=== PATIENT | male | born 1970 | race Caucasian/White ===

== ENCOUNTER 2017-11-18 17:38 | Emergency (ER) | payer SELFPAY ==
[~2017-11-18] VITALS: Ht 193 cm; Wt 82.0 kg
[2017-11-18 17:44] VITALS: BP 148/81; PULSE 74; RESP 16; TEMP 98.3; O2SAT 98
--- NOTE | 2017-11-18 18:48 | PD ---
HPI Chief Complaint: Cold / Flu Symptoms Time Seen by Provider: 18:36 Travel History International Travel<30 days: No Contact w/Intl Traveler<30days: No Traveled to known affect area: No History of Present Illness HPI 47 years old male complains of nasal congestion, ear stuffiness, coughing sneezing, nausea vomiting, loose stool and body ache. Patient states that his symptoms started 3 days ago got progressively worse since then. Patient complains of generalized malaise in weakness of feeling shaky dizzy. Patient states that the cough with intermittent productive. Patient states that the nasal congestion with occasionally bloody nasal discharge. Patient denies abdominal pain. Patient states that he had some loose stool. Patient stated that he had dysuria yesterday but not today. Patient complains of body ache. Patient denies headache or neck pain. PFSH Past Medical History Medical History: Denies Significant Hx Diminished Hearing: No Tetanus Vaccination: Unknown Influenza Vaccination: No Past Surgical History Surgical History: No Previous Surgery Social History Alcohol Use: Yes Tobacco Use: Yes Substance Use: No Allergies-Medications (Allergen,Severity, Reaction): Coded Allergies: No Known Allergies (Unverified , 11/18/17) Reported Meds & Prescriptions Reported Meds & Active Scripts Active No Active Prescriptions or Reported Medications Review of Systems General / Constitutional: No: Fever Eyes: No: Visual changes HENT: Positive: Earache, No: Headaches Cardiovascular: No: Chest Pain or Discomfort Respiratory: Positive: Cough, No: Shortness of Breath Gastrointestinal: Positive: Nausea, Vomiting, No: Abdominal Pain Genitourinary: No: Dysuria Musculoskeletal: No: Pain Skin: No Rash Neurologic: No: Weakness Psychiatric: No: Depression Endocrine: No: Polydipsia Hematologic/Lymphatic: No: Easy Bruising Physical Exam Narrative GENERAL: Well-nourished, well-developed patient. SKIN: Focused skin assessment warm/dry. HEAD: Normocephalic. EYES: No scleral icterus. No injection or drainage. TM: Clear. Throat: Nonerythematous. Mild tenderness on palpation frontal or maxillary sinus area. NECK: Supple, trachea midline. No JVD or lymphadenopathy. No meningismus CARDIOVASCULAR: Regular rate and rhythm without murmurs, gallops, or rubs. RESPIRATORY: Breath sounds equal bilaterally. No accessory muscle use. GASTROINTESTINAL: Abdomen soft, non-tender, nondistended. MUSCULOSKELETAL: No cyanosis, or edema. BACK: Nontender without obvious deformity. No CVA tenderness. Neurologic exam normal. Data Data Last Documented VS Vital Signs Date Time Temp Pulse Resp B/P (MAP) Pulse Ox O2 Delivery O2 Flow Rate FiO2 11/18/17 19:21 18 Room Air 11/18/17 19:21 69 118/80 (93) 96 11/18/17 17:44 98.3 Orders Orders Influenzae A/B Antigen (11/18/17 18:42) Chest, Single Ap (11/18/17 18:42) MDM Medical Decision Making Medical Screen Exam Complete: Yes Emergency Medical Condition: Yes Interpretation(s) Last Impressions Chest X-Ray 11/18/171841 Signed Impressions: Service Date/Time: Thursday, November 18, 2017 18:45 - CONCLUSION: Hyperinflation suggesting COPD. No acute infiltrate or effusion. Kayode Carpenter Jr., MD 7 PM. Influenza AB antigen negative. Differential Diagnosis Differential diagnosis including lateral syndrome, otitis media, pharyngitis, bronchitis, pneumonia, gastroenteritis Narrative Course 47 years old male with earache sore throat congestion coughing nausea vomiting body ache. Diagnosis Primary Impression: Bronchitis Additional Impressions: Sinusitis Qualified Codes: J01.00 - Acute maxillary sinusitis, unspecified Viral syndrome Patient Instructions: General Instructions Additional Instructions: Z-Giorgi as directed. Tylenol ibuprofen for aching pain in fever. Follow-up with personal physician. Encourage p.o. fluids. Return if persistent problems or worse. Off work tomorrow. Med/Other Pt SpecificInfo: Prescription(s) given Scripts Ondansetron Odt (Zofran Odt) 4 Mg Tab 4 MG SL Q6HR Y for Nausea/Vomiting, #10 TAB 0 Refills Prov: Mateus Perales MD 11/18/17 Azithromycin (Zithromax Z-Giorgi) 250 Mg Dspk 250 MG PO DIRECTED for Infection, #1 DSPK 0 Refills 500 MG (2 tabs) day 1, then 1 tab days 2-5. Prov: Mateus Perales MD 11/18/17 Disposition: 01 DISCHARGE HOME Condition: Stable Mateus Perales MD Nov 18, 2017 18:48
--- NOTE | 2017-11-18 19:05 | RADRPT ---
EXAM DATE/TIME: 11/18/2017 18:45 [facility] COMPARISON: No previous studies available for comparison. INDICATIONS : Cough. MEDICAL HISTORY : None. SURGICAL HISTORY : None. ENCOUNTER: Initial ACUITY: 1 day PAIN SCORE: 0/10 LOCATION: Bilateral chest FINDINGS: 2 portable frontal views of the chest show hyperinflation to both lungs. No infiltrates or effusions. No masses. Heart is normal in size. Bony structures are unremarkable. CONCLUSION: Hyperinflation suggesting COPD. No acute infiltrate or effusion. Kayode Carpenter Jr., MD on November 18, 2017 at 19:02 Board Certified Radiologist. This report was verified electronically.
[2017-11-18 19:21] VITALS: BP 118/80; PULSE 69; RESP 18; O2SAT 96
[2017-11-18 20:20] VITALS: BP 124/78; PULSE 68; RESP 18; O2SAT 97
[2017-11-18] MEDS ORDERED: ZITHTAB PO (20:42)
[2017-11-18] MEDS ORDERED: ZOFR4TAB3 SL (20:42)
[2017-11-18 21:18] VITALS: BP 116/76
== END 2017-11-18 21:27 | disposition home or self-care (01) ==
LOC: PHED 17:38
DX: J40 Bronchitis, not specified as acute or chronic (principal); J01.00 Acute maxillary sinusitis, unspecified; B34.9 Viral infection, unspecified; H93.90 Unspecified disorder of ear, unspecified ear; R11.2 Nausea with vomiting, unspecified; R19.7 Diarrhea, unspecified; M79.1 Myalgia; R53.81 Other malaise; R53.1 Weakness; R42 Dizziness and giddiness; Z72.0 Tobacco use
CPT/HCPCS: 71045; 87804; 99284